=== PATIENT | male | born 1945 | race Caucasian/White ===

== ENCOUNTER 2017-02-04 05:35 | Outpatient (CLI) | payer MEDICARE, OTHER ==
[~2017-02-04] VITALS: Ht 185.4 cm; Wt 115.7 kg
[~2017-02-04 05:35] MED LIST: LISI1TAB8 PO; LISI20TA PO; METO25TA PO
[2017-02-04] MEDS ORDERED: MELO7.5T46 PO (12:02)
[2017-02-04] MEDS ORDERED: LUTE20CA2 PO (12:02)
[2017-02-04] MEDS ORDERED: ALLO300T2 PO (12:02)
[2017-02-06] MEDS ORDERED: HYDR-3820 PO (09:52)
== END 2017-02-04 12:18 ==
LOC: PREOP 05:35
PROVIDERS: ATTEND Surgery
DX: Z01.818 Encounter for other preprocedural examination (principal); C44.719 Basal cell carcinoma of skin of left lower limb, including hip; C44.729 Squamous cell carcinoma of skin of left lower limb, including hip

== ENCOUNTER 2017-02-06 08:22 | Day surgery (SDC) | payer MEDICARE, OTHER ==
[~2017-02-06] VITALS: Ht 185.4 cm; Wt 115.7 kg
[~2017-02-06 08:22] MED LIST changes: +ALLO300T2 PO; +LUTE20CA2 PO; +MELO7.5T46 PO
[2017-02-06 08:25] VITALS: BP 137/90
--- OUTSIDE RECORDS SUMMARY | 2017-02-06 08:26 | XMS REPORT | Continuity of Care Document ---
Author Author [facility] Organization [facility] Address Unknown Phone Unavailable Allergies Active Description Code Type Severity Reaction Onset Reported/Identified Relationship to Patient Clinical Status Yes No Known Drug Allergies [id number] Drug Allergy Unknown N/ A 12/22/2014 Medications Problems Date Dx Coded Attending Type Code Diagnosis Diagnosed By 10/14/2013 LINNEA ELAINE MD Ot 401.9 10/14/2013 LINNEA ELAINE MD Ot 560.9 12/17/2014 MICAELA JUNG, LORI Ot V72.84 12/20/2014 MICAELA JUNG, LORI Ot V72.84 12/21/2014 MICAELA JUNG, LORI Ot V72.84 12/21/2014 MICAELA JUNG, LORI Ot V72.84 12/21/2014 MICAELA JUNG, LORI Ot V72.84 12/22/2014 MICAELA JUNG, MARIA DEL ROSARIOAACRISTOPHER Ot V72.84 12/22/2014 MICAELA JUNG, MARIA DEL ROSARIOAACRISTOPHER Ot 455.0 12/22/2014 MICAELA JUNG, LORI Ot 455.3 12/22/2014 MICAELA JUNG, LORI Ot 562.10 12/22/2014 MICAELA JUNG, LORI Ot V76.51 Procedures Results Encounters ACCT No. Visit Date/Time Discharge Status Pt. Type Provider Facility Loc./Unit Complaint [id number] 12/22/2014 07:46:00 2014 11:30:00 DIS Outpatient LORI HINOJOSA MD [facility] [id number] 12/16/2014 07:16:00 2014 23:59:59 CLS Outpatient LORI HINOJOSA MD [facility] PREOP [id number] 10/12/2013 03:00:00 2013 12:31:00 DIS Inpatient LINNEA ELAINE MD [facility] SURGICAL
[2017-02-06] MEDS ORDERED: ceFAZolin 2 GM/NS 50 ML IV ONE (08:45)
[2017-02-06] MEDS ORDERED: FAMOTIDINE 20MG/2ML IV (PEPCID) IV ONE (09:00)
[2017-02-06] MEDS: LACTATED RINGERS 1,000 ML IV PRN ×2 (09:13→10:39)
[2017-02-06] MEDS ORDERED: LIDOCAINE PF 2% 5 ML (XYLOCAINE) VIAL ONE (09:28)
[2017-02-06] MEDS ORDERED: proPOfol 200 MG/20 ML (DIPRIVAN) VIAL IV ONE (09:28)
[2017-02-06] MEDS ORDERED: MIDAZOLAM 2 MG/2 ML (VERSED) VIAL ONE (09:31)
[2017-02-06] MEDS ORDERED: fentaNYL INJECTION 100 MCG/2 ML AMP ONE (09:32)
[2017-02-06] MEDS ORDERED: BUP/EPI 0.5% 1:200,000 (MARCAINE) 10ML VIAL IJ ONE (09:32)
[2017-02-06] MEDS ORDERED: EPINEPHrine INJECTION 1 MG/ML AMP ONE (09:33)
--- NOTE | 2017-02-06 09:51 | Progress Note-Pre Operative ---
Pre-Operative Progress Note H&P Reviewed The H&P was reviewed, patient examined and no changes noted. 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
[2017-02-06] MEDS ORDERED: HYDR-3820 PO (09:52)
--- NOTE | 2017-02-06 09:53 | Discharge Inst-Simple/Standard ---
Discharge Inst-Standard Discharge Medications New, Converted or Re-Newed RX: RX on Chart Patient Instructions/Follow Up Plan of Care/Instructions/FU: All dressings to remain intact until Saturday. Left leg to be kept elevated as much as possible. May reinforce donor site over the left thigh with ABDs pads and Kerlix. Follow-up with my nurse on Saturday morning for dressing change Activity as Tolerated: Yes Discharge Diet: No Restrictions ALFREDITO SANDOVAL MD Feb 06, 2017 9:53 am
[2017-02-06] MEDS ORDERED: SEVOFLURANE (ULTANE) 15 ML INHAL SOLN ONE (10:53)
[2017-02-06] MEDS ORDERED: ONDANSETRON 4 MG/2 ML (SDV) Z0FRAN ONE (10:54)
[2017-02-06] MEDS ORDERED: morphine INJ 10 MG/ML 1ML (SYR OR VIAL) IVP PRN (11:15)
--- NOTE | 2017-02-06 11:16 | Operative Report ---
Operative Report Date of Procedure/Surgery Feb 06, 2017 Surgeon (s) ALFREDITO SANDOVAL MD Actuarial Associate (s): Not Applicable Post-Operative Diagnosis Same Procedure Performed Wide excision of squamous cell carcinoma left leg(4*3 cm) Split thickness skin grafting( 12 cm) Description of Procedure Anesthesia Type: General Estimated blood loss (mL): Minimal Specimen(s) collected/removed squamous cell cancer left leg Description of the Procedure Indictation for procedure: Punch biopsy of a nonhealing, raised lesion over the left leg was confirmed to be a squamous cell carcinoma. He was offered wide excision down to the subcutaneous tissue with frozen section, to ensure negative margins, followed immediately by split-thickness skin grafting. Informed consent was obtained after reviewing the operative details and complications of postoperative wound infection, failure of the graft and hematoma. Description of the procedure: He was placed supine on the operating table and general anesthesia induced using a laryngeal mask airway. Prophylactic antibiotics were administered intravenously. Left leg and thigh were prepared and draped in the usual sterile manner. A split-thickness skin graft was obtained from the left anterior thigh and the donor site covered with dilute epinephrine solution, to achieve adequate hemostasis. Pre-emptive analgesia was established using 0.5 percent Marcaine with epinephrine around the lesion over the left leg. It was excised down to the subcutaneous tissue, oriented with silk sutures and sent for histologic examination. The pathologist confirmed negative margins. Hemostasis was achieved using topical epinephrine solution and minimal use of cautery. Skin graft was then meshed using a dermatome and placed over the right of excision. It is secured using anna marie and a nonadherent dressing applied. He tolerated it well, was extubated and taken to the recovery room in a stable condition. Findings of the Procedure See operative report Allergies and Home Medications Allergies Coded Allergies: latex (Verified Allergy, Unknown, RASH, 02/04/17) Home Medications Allopurinol 300 Mg Tablet, 300 MG PO DAILY, (Reported) Hydrocodone/Acetaminophen 1 Each Tablet, 1 TAB PO Q4H PRN for PAIN-MILD TO MODERATE, #30 Ref 0 Prescribed by: ALFREDITO SANDOVAL on 02/06/17 0952 Lisinopril/Hydrochlorothiazide 1 Each Tablet, 1 EACH PO BID, (Reported) Lutein 20 Mg Capsule, 20 MG PO DAILY, (Reported) Meloxicam 7.5 Mg Tablet, 7.5 MG PO DAILY, (Reported) ALFREDITO SANDOVAL MD Feb 06, 2017 11:16 am
[2017-02-06 12:00] VITALS: BP 118/84
[2017-02-06 12:30] VITALS: BP 115/71
[2017-02-06 12:55] VITALS: BP 125/69
[2017-02-06 19:36] VITALS: BP 125/69
== END 2017-02-06 12:55 | disposition home or self-care (01) ==
LOC: SDC 08:22
PROVIDERS: ATTEND Surgery
DX: C44.729 Squamous cell carcinoma of skin of left lower limb, including hip (principal); I10 Essential (primary) hypertension; K21.9 Gastro-esophageal reflux disease without esophagitis; E66.9 Obesity, unspecified; Z68.33 Body mass index [BMI] 33.0-33.9, adult; Z87.891 Personal history of nicotine dependence; Z79.899 Other long term (current) drug therapy
CPT/HCPCS: 87081

== ENCOUNTER → 2021-08-25 | Outpatient (CLI) | payer MEDICARE, OTHER ==
[~2021-08-25] MED LIST changes: +ACHYD1T PO; +LISI1TAB46 PO; -LISI1TAB8 PO
--- NOTE | 2021-08-25 12:58 | Diagnostic Imaging Report ---
PROCEDURE: CT abdomen and pelvis without contrast. TECHNIQUE: Multiple contiguous axial images were obtained through the abdomen and pelvis without the use of intravenous contrast. Auto Exposure Controls were utilized during the CT exam to meet ALARA standards for radiation dose reduction. INDICATION: Prostate carcinoma. Correlation is made with prior CT from 10/12/2013. FINDINGS: The lung bases are clear. No discrete liver mass is detected. Gallbladder is surgically absent. There is no biliary ductal dilatation. The pancreas and spleen are unremarkable. No adrenal mass is detected. Kidneys are unremarkable. Aorta is nonaneurysmal. No central retroperitoneal or mesenteric lymphadenopathy is seen. The bowel loops are normal caliber. There is diverticulosis of the descending and sigmoid colon but no evidence of acute diverticulitis. There is a diverticulum arising from the right aspect of the bladder base measuring approximately 3 cm. Prostate is unremarkable. No free fluid or fluid collection is seen. There is no pelvic lymphadenopathy detected. No osteolytic or blastic lesions are seen. IMPRESSION: 1. Uncomplicated diverticulosis. 2. Bladder diverticulum. 3. No other significant abnormality is detected. Dictated by: Dictated on workstation # [id number]
--- NOTE | 2021-08-25 16:27 | Diagnostic Imaging Report ---
RADIOPHARMACEUTICAL: 25.1 mCi Tc-99m MDP IV. COMPARISON: CT dated 08/25/2021. TECHNIQUE: Anterior and posterior whole body images. FINDINGS: Focal rounded radiotracer activity is identified abutting the right aspect of the urinary bladder with extremely increased activity. This is felt to correspond to a urinary bladder diverticulum noted on concurrent CT examination. Significant activity is noted associated with the right greater than left knees, felt to be degenerative in nature. Activity within the right greater than left sternoclavicular joints is also present, felt to be degenerative in nature. Minimal scattered activity within the spine is favored to be degenerative in nature. The bilateral kidneys are visualized. IMPRESSION: 1. Urinary bladder diverticulum accounting for the focal rounded activity within the right pelvis. 2. Scattered activity involving the knees, sternoclavicular joints, and spine is favored to be degenerative in nature. Dictated by: Dictated on workstation # [id number]
== END ==
LOC: CARD 12:00
PROVIDERS: ATTEND Urology
DX: K57.30 Diverticulosis of large intestine without perforation or abscess without bleeding (principal); N32.3 Diverticulum of bladder; C61 Malignant neoplasm of prostate
CPT/HCPCS: 74176; 78306; A9503

== ENCOUNTER 2021-09-19 09:56 | Outpatient (RCR) | payer MEDICARE ==
[~2021-09-19 09:56] MED LIST changes: +LEUPROLIDE 22.5 MG SYRINGE (ELIGARD) SQ SCH
== END 2021-09-26 | disposition home or self-care (01) ==
LOC: ONC 09:56
PROVIDERS: ATTEND Internal Medicine Hematology & Oncology
DX: C61 Malignant neoplasm of prostate (principal)
CPT/HCPCS: 36415; 84153; 96402; 99204; 99214

== ENCOUNTER 2021-10-20 10:07 | Outpatient (RCR) | payer MEDICARE ==
[~2021-10-20 10:07] MED LIST changes: -LEUPROLIDE 22.5 MG SYRINGE (ELIGARD) SQ SCH
== END 2021-10-26 | disposition home or self-care (01) ==
LOC: ONC 10:07
PROVIDERS: ATTEND Internal Medicine Hematology & Oncology
DX: C61 Malignant neoplasm of prostate (principal)
CPT/HCPCS: 36415; 84153

== ENCOUNTER 2021-12-21 10:29 | Outpatient (RCR) | payer MEDICARE ==
[~2021-12-21 10:29] MED LIST changes: +LEUPROLIDE 22.5 MG SYRINGE (ELIGARD) SQ SCH
== END 2021-12-27 | disposition home or self-care (01) ==
LOC: ONC 10:29
PROVIDERS: ATTEND Internal Medicine Hematology & Oncology
DX: C61 Malignant neoplasm of prostate (principal)
CPT/HCPCS: 36415; 76873; 84153; 84403; 96402; 99213

== ENCOUNTER 2022-01-31 10:05 | Outpatient (RCR) | payer MEDICARE ==
[2022-01-29 11:30] LABS: BASOPHILS # (AUTO) 0.1 10^3/uL (0.0-0.1); BASOPHILS % (AUTO) 1 % (0-10); EOSINOPHILS # (AUTO) 0.2 10^3/uL (0.0-0.3); EOSINOPHILS % (AUTO) 3 % (0-10); HEMATOCRIT 42 % (40-54); HEMOGLOBIN 13.8 g/dL (13.3-17.7); LYMPHOCYTES # (AUTO) 2.1 10^3/uL (1.0-4.0); LYMPHOCYTES % (AUTO) 29 % (12-44); MEAN CORPUSCULAR HEMOGLOBIN 31 pg (25-34); MEAN CORPUSCULAR HGB CONC 33 g/dL (32-36); MEAN CORPUSCULAR VOLUME 92 fL (80-99); MEAN PLATELET VOLUME 10.6 fL (9.0-12.2); MONOCYTES # (AUTO) 0.5 10^3/uL (0.0-1.0); MONOCYTES % (AUTO) 7 % (0-12); NEUTROPHILS # (AUTO) 4.2 10^3/uL (1.8-7.8); NEUTROPHILS % (AUTO) 59 % (42-75); PLATELET COUNT 189 10^3/uL (130-400); WHITE BLOOD COUNT 7.1 10^3/uL (4.3-11.0)
[2022-01-29 11:48] LABS: ALBUMIN 3.3 GM/DL (3.2-4.5); BILIRUBIN,TOTAL 0.7 MG/DL (0.1-1.0); CALCIUM 8.7 MG/DL (8.5-10.1); CREATININE SERUM 1.42 MG/DL (0.60-1.30); POTASSIUM 3.3 MMOL/L (3.6-5.0); TOTAL PROTEIN 5.8 GM/DL (6.4-8.2)
[~2022-01-31 10:05] MED LIST changes: -LEUPROLIDE 22.5 MG SYRINGE (ELIGARD) SQ SCH
[2022-02-07] MEDS ORDERED: TMSL.4C PO (16:16)
[2022-02-07] MEDS ORDERED: FA/V1CAP3 PO (16:16)
[2022-02-07] MEDS ORDERED: OMEG-33 PO (16:16)
== END 2022-02-26 | disposition home or self-care (01) ==
LOC: ONC 10:05
PROVIDERS: ATTEND Internal Medicine Hematology & Oncology
DX: C61 Malignant neoplasm of prostate (principal)
CPT/HCPCS: 36415; 80053; 84153; 84403; 85025; 99213

== ENCOUNTER → 2022-02-07 | Outpatient (CLI) | payer MEDICARE ==
[~2022-02-07] VITALS: Ht 185 cm; Wt 118.2 kg
[~2022-02-07] MED LIST changes: +FA/V1CAP3 PO; +OMEG-33 PO; +TMSL.4C PO
== END | disposition home or self-care (01) ==
LOC: PREOP 05:29
PROVIDERS: ATTEND Urology
DX: Z01.818 Encounter for other preprocedural examination (principal)

== ENCOUNTER 2022-02-14 06:32 | Day surgery (SDC) | payer MEDICARE ==
[~2022-02-14] VITALS: Ht 185 cm; Wt 118.2 kg
[2022-02-14] VITALS (11 sets, daily range): BP systolic 90–115; BP diastolic 55–84
[2022-02-14] MEDS: LACTATED RINGERS 1,000 ML IV PRN ×3 (07:10→09:56)
--- NOTE | 2022-02-14 07:10 | Progress Note-Pre Operative ---
Pre-Operative Progress Note Date of Available H&P: Feb 14, 2022 Date H&P Reviewed: Feb 14, 2022 Time H&P Reviewed: 07:09 Changes from last HP NONE Pre-Operative Diagnosis: CA PROSTATE WILSON ROSE MD Feb 14, 2022 07:10
--- NOTE | 2022-02-14 07:11 | Progress Note-Post Operative ---
Post-Operative Progess Note Surgeon (s)/Digester (s) Surgeon ZAHEER MILLS MD, WILSON ROSE MD Digester: NONE Pre-Operative Diagnosis CA PROSTATE Post-Operative Diagnosis SAME Procedure & Operative Findings Date of Procedure 02/14/22 Procedure Performed/Findings BRACHYTHERAPY, CYSTOGRAM, AND SPACE OAR Anesthesia Type GENERAL Estimated Blood Loss Estimated blood loss (mL): NEGLIGIBLE Specimens/Packing Specimens Removed NONE Packing: NONE WILSON ROSE MD Feb 14, 2022 07:11
--- NOTE | 2022-02-14 07:14 | Discharge Inst-Urology ---
Discharge Inst-Urology Reconcile Patient Problems Problems Reviewed?: Yes Final Diagnosis CA PROSTATE Patient Instructions/Follow Up Plan/Assessment/Instructions Discharge with Horan and leg bag day time and large bag night time with instructions Come to office Saturday 9am to LEIGH horan Please make appointment to been seen in office by me in 2 weeks. Keep bowels soft and moving Increase oral fluids for 48 hours and then as needed. Diet and Activity as tolerated. If questions or concerns contact your physician Or seek help at emergency department. WILSON ROSE MD Feb 14, 2022 07:14
[2022-02-14] MEDS ORDERED: fentaNYL INJ 100 MCG/2 ML AMP ONE ×2 (08:40→10:43)
[2022-02-14] MEDS ORDERED: proPOfol 200 MG/20 ML (DIPRIVAN) VIAL IV ONE (08:40)
[2022-02-14] MEDS ORDERED: LIDOCAINE PF 2% 5 ML (XYLOCAINE) VIAL ONE (08:40)
[2022-02-14] MEDS ORDERED: ONDANSETRON 4 MG/2 ML (SDV) Z0FRAN ONE (08:40)
[2022-02-14] MEDS ORDERED: BACITRACIN OINTMENT 28 GM TUBE ONE (09:49)
[2022-02-14] MEDS ORDERED: SEVOFLURANE (ULTANE) 15 ML INHAL SOLN ONE (10:26)
--- NOTE | 2022-02-14 10:34 | Anesthesia-General Post-Op ---
General Patient Condition Mental Status/LOC: Same as Preop Cardiovascular: Satisfactory Nausea/Vomiting: Absent Respiratory: Satisfactory Pain: Controlled Complications: Absent Post Op Complications Complications None Follow Up Care/Instructions Patient Instructions None needed. Anesthesia/Patient Condition Patient Condition Patient is doing well, no complaints, stable vital signs, no apparent adverse anesthesia problems. No complications reported per nursing. SUZANNA BARNETT CRNA Feb 14, 2022 10:34
[2022-02-14] MEDS ORDERED: PHENYLEPHRINE 100 MCG/ML 10 ML (ANESTHESIA) SYR ONE (10:36)
[2022-02-14] MEDS ORDERED: fentaNYL INJ 100 MCG/2 ML AMP IVP ONE (10:45)
[2022-02-14] MEDS ORDERED: ONDANSETRON 4 MG/2 ML (SDV) Z0FRAN IVP PRN (10:45)
--- NOTE | 2022-02-14 15:36 | Diagnostic Imaging Report ---
INDICATION: Brachytherapy for prostate cancer COMPARISON: None available. IMPRESSION: Single spot imaging shows multiple fiducial markers within the expected region of the prostate. Air Kerma is 9.76 mGy. Please see procedure report for more details. Dictated by: Dictated on workstation # [id number]
== END 2022-02-14 12:45 ==
LOC: SDC 06:32
PROVIDERS: ATTEND Urology
DX: C61 Malignant neoplasm of prostate (principal); Z87.891 Personal history of nicotine dependence
CPT/HCPCS: 55876; 76000; 76965; 77290; 77318; 77332; 77370; 77470; 77778; 87081; C1715 ×2; C1889; C2643

== ENCOUNTER 2022-03-26 10:35 | Outpatient (RCR) | payer MEDICARE ==
[~2022-03-26 10:35] MED LIST changes: +LEUPROLIDE 22.5 MG SYRINGE (ELIGARD) SQ SCH
== END 2022-03-28 | disposition home or self-care (01) ==
LOC: ONC 10:35
PROVIDERS: ATTEND Internal Medicine Hematology & Oncology
DX: Z51.0 Encounter for antineoplastic radiation therapy (principal); C61 Malignant neoplasm of prostate
CPT/HCPCS: 77290; 77295; 96402

== ENCOUNTER 2022-04-27 10:22 | Outpatient (RCR) | payer MEDICARE ==
[~2022-04-27 10:22] MED LIST changes: -LEUPROLIDE 22.5 MG SYRINGE (ELIGARD) SQ SCH
== END 2022-04-28 | disposition home or self-care (01) ==
LOC: ONC 10:22
PROVIDERS: ATTEND Internal Medicine Hematology & Oncology
DX: Z51.0 Encounter for antineoplastic radiation therapy (principal); C61 Malignant neoplasm of prostate
CPT/HCPCS: 77300; 77301; 77334; 77336; 77338; 77385; 77470

== ENCOUNTER 2022-05-18 10:44 | Outpatient (RCR) | payer MEDICARE | END 2022-05-29 | disposition home or self-care (01) | LOC: ONC 10:44 | PROVIDERS: ATTEND Internal Medicine Hematology & Oncology | DX: Z51.0 Encounter for antineoplastic radiation therapy (principal); C61 Malignant neoplasm of prostate; I10 Essential (primary) hypertension; E66.9 Obesity, unspecified | CPT/HCPCS: 77385; G0463; 77336; 96402 ==

== ENCOUNTER → 2022-06-26 | Outpatient (RCR) | payer MEDICARE ==
[~2022-06-26] MED LIST changes: +LEUPROLIDE 22.5 MG SYRINGE (ELIGARD) SQ SCH
== END | disposition home or self-care (01) ==
LOC: ONC 10:32
PROVIDERS: ATTEND Internal Medicine Hematology & Oncology
DX: C61 Malignant neoplasm of prostate (principal); I10 Essential (primary) hypertension; E66.9 Obesity, unspecified
CPT/HCPCS: 96402

== ENCOUNTER 2022-07-31 10:25 | Outpatient (RCR) | payer MEDICARE ==
[~2022-07-31 10:25] MED LIST changes: -LEUPROLIDE 22.5 MG SYRINGE (ELIGARD) SQ SCH
[2022-07-31 10:45] LABS: BASOPHILS % (AUTO) 1 % (0-10); EOSINOPHILS % (AUTO) 1 % (0-10); HEMATOCRIT 41 % (40-54); HEMOGLOBIN 14.1 g/dL (13.3-17.7); LYMPHOCYTES # (AUTO) 0.6 10^3/uL (1.0-4.0); LYMPHOCYTES % (AUTO) 14 % (12-44); MEAN CORPUSCULAR HEMOGLOBIN 32 pg (25-34); MEAN CORPUSCULAR HGB CONC 34 g/dL (32-36); MEAN CORPUSCULAR VOLUME 92 fL (80-99); MEAN PLATELET VOLUME 10.2 fL (9.0-12.2); MONOCYTES # (AUTO) 0.5 10^3/uL (0.0-1.0); MONOCYTES % (AUTO) 13 % (0-12); NEUTROPHILS # (AUTO) 2.9 10^3/uL (1.8-7.8); NEUTROPHILS % (AUTO) 71 % (42-75); PLATELET COUNT 156 10^3/uL (130-400); WHITE BLOOD COUNT 4.2 10^3/uL (4.3-11.0)
[2022-07-31 11:05] LABS: ALBUMIN 3.4 GM/DL (3.2-4.5); BILIRUBIN,TOTAL 0.9 MG/DL (0.1-1.0); CALCIUM 8.9 MG/DL (8.5-10.1); CREATININE SERUM 1.27 MG/DL (0.60-1.30); POTASSIUM 3.3 MMOL/L (3.6-5.0)
== END 2022-08-26 | disposition home or self-care (01) ==
LOC: ONC 10:25
PROVIDERS: ATTEND Internal Medicine Hematology & Oncology
DX: C61 Malignant neoplasm of prostate (principal)
CPT/HCPCS: 36415; 80053; 84153; 84402; 84403; 85025

== ENCOUNTER 2022-09-25 09:59 | Outpatient (RCR) | payer MEDICARE ==
[~2022-09-25 09:59] MED LIST changes: +LEUPROLIDE 22.5 MG SYRINGE (ELIGARD) SQ SCH
== END 2022-09-26 | disposition home or self-care (01) ==
LOC: ONC 09:59
PROVIDERS: ATTEND Internal Medicine Hematology & Oncology
DX: Z51.11 Encounter for antineoplastic chemotherapy (principal); C61 Malignant neoplasm of prostate
CPT/HCPCS: 96402

== ENCOUNTER 2022-10-31 09:28 | Outpatient (RCR) | payer MEDICARE ==
[~2022-10-31 09:28] MED LIST changes: -LEUPROLIDE 22.5 MG SYRINGE (ELIGARD) SQ SCH
== END 2022-11-26 | disposition home or self-care (01) ==
LOC: ONC 09:28
PROVIDERS: ATTEND Internal Medicine Hematology & Oncology
DX: C61 Malignant neoplasm of prostate (principal)
CPT/HCPCS: 84153

== ENCOUNTER 2022-12-18 09:24 | Outpatient (RCR) | payer MEDICARE ==
[~2022-12-18 09:24] MED LIST changes: +LEUPROLIDE 22.5 MG SYRINGE (ELIGARD) SQ SCH
[2022-12-18 09:40] LABS: BASOPHILS # (AUTO) 0.1 10^3/uL (0.0-0.1); BASOPHILS % (AUTO) 1 % (0-10); EOSINOPHILS # (AUTO) 0.1 10^3/uL (0.0-0.3); EOSINOPHILS % (AUTO) 2 % (0-10); HEMATOCRIT 42 % (40-54); HEMOGLOBIN 13.9 g/dL (13.3-17.7); LYMPHOCYTES # (AUTO) 1.1 10^3/uL (1.0-4.0); LYMPHOCYTES % (AUTO) 18 % (12-44); MEAN CORPUSCULAR HEMOGLOBIN 31 pg (25-34); MEAN CORPUSCULAR HGB CONC 33 g/dL (32-36); MEAN CORPUSCULAR VOLUME 93 fL (80-99); MEAN PLATELET VOLUME 10.4 fL (9.0-12.2); MONOCYTES # (AUTO) 0.6 10^3/uL (0.0-1.0); MONOCYTES % (AUTO) 10 % (0-12); NEUTROPHILS # (AUTO) 4.4 10^3/uL (1.8-7.8); NEUTROPHILS % (AUTO) 69 % (42-75); PLATELET COUNT 193 10^3/uL (130-400); WHITE BLOOD COUNT 6.4 10^3/uL (4.3-11.0)
[2022-12-18 09:59] LABS: ALBUMIN 3.4 GM/DL (3.2-4.5); BILIRUBIN,TOTAL 0.7 MG/DL (0.1-1.0); CALCIUM 8.7 MG/DL (8.5-10.1); CREATININE SERUM 1.45 MG/DL (0.60-1.30); POTASSIUM 3.5 MMOL/L (3.6-5.0); TOTAL PROTEIN 5.9 GM/DL (6.4-8.2)
== END 2022-12-27 | disposition still patient (30) ==
LOC: ONC 09:24
PROVIDERS: ATTEND Internal Medicine Hematology & Oncology
DX: Z51.11 Encounter for antineoplastic chemotherapy (principal); C61 Malignant neoplasm of prostate
CPT/HCPCS: 80053; 84153; 84402; 84403; 85025; 96402; G0463; 36415; 99214

== ENCOUNTER 2023-03-12 09:14 | Outpatient (RCR) | payer MEDICARE ==
[~2023-03-12 09:14] MED LIST changes: -LEUPROLIDE 22.5 MG SYRINGE (ELIGARD) SQ SCH
[2023-03-12] MEDS ORDERED: LEUPROLIDE 22.5 MG SYRINGE (ELIGARD) SQ SCH (10:00)
== END 2023-03-28 | disposition home or self-care (01) ==
LOC: ONC 09:14
PROVIDERS: ATTEND Internal Medicine Hematology & Oncology
DX: C61 Malignant neoplasm of prostate (principal)
CPT/HCPCS: 84153; 96402; 99214